=== PATIENT | male | born 1990 ===

== ENCOUNTER 2019-11-08 22:07 | Emergency (ER) | payer SELFPAY ==
[2019-11-09] MEDS ORDERED: ACETAMINOPHEN 325 MG TAB PO ONE (02:29)
[2019-11-09] MEDS ORDERED: IBUPROFEN 400 MG TAB PO ONE (02:29)
--- NOTE | 2019-11-09 02:30 | Emergency Department Report ---
ED General Adult HPI - General Chief complaint: Neuro Symptoms/Deficit Stated complaint: LEFT SIDE FACIAL PAIN/NUMBNESS PUI?: No Time Seen by Provider: 11/09/19 02:28 Source: patient, illustrator set, RN notes reviewed, old records reviewed Mode of arrival: Ambulatory Limitations: Language Barrier - History of Present Illness Initial comments: The patient was evaluated in the emergency department for symptoms described in the history of present illness. He/she was evaluated in the context of the global COVID-19 pandemic, which necessitated consideration that the patient might be at risk for infection with the virus that causes COVID-19. Institutional protocols and algorithms that pertain to the evaluation of patients at risk for COVID-19 are in a state of rapid change based on information released by regulatory bodies including the CDC and federal and state organizations. These policies and algorithms were followed during the patient's care in the emergency department. Please note that these policies, procedures and recommendations changed on a rapid basis. interpreter: [id number] The patient is a 29-year-old gentleman. He is not known to myself previously. He presents to the ER with a subjective sensation of the intermittent right and left side of his face twisting, inability to whistle, dental pain on the left maxillary posterior teeth, left posterior mandibular teeth, left-sided facial pain, sensitivity to cold, sensitivity to hot, subjective sensation that he cannot stick his tongue out to the middle, lightheadedness, without passing out, without DVT, pulmonary embolism risk factors. No headache, ocular pain, loss of vision, tinnitus, loss of hearing acuity, no chest pain, no abdominal pain, no shortness of breath, no ataxia, no focal extremity weakness and or numbness, no muscular pain. He subjectively feels like he cannot whistle. He has no loss of vision. -: days(s) Location: face, mouth Radiation: non-radiation Quality: constant Consistency: constant Improves with: none Worsens with: none - Related Data Previous Rx's Medication Instructions Recorded Last Taken Type Acetaminophen [Non-Aspirin Extra 500 mg PO Q6HR PRN #30 tablet 11/09/19 Unknown Rx Strength] Ibuprofen [Motrin] 600 mg PO Q8H PRN #30 tablet 11/09/19 Unknown Rx Mineral Oil/Petrolatum,White 1 applic OS PRN PRN #1 oint...g. 11/09/19 Unknown Rx [Refresh Lacri-Lube Ointment] Allergies Allergy/AdvReac Type Severity Reaction Status Date / Time No Known Allergies Allergy Unverified 10/06/17 12:05 ED Review of Systems ROS: Stated complaint: LEFT SIDE FACIAL PAIN/NUMBNESS Other details as noted in HPI Constitutional: denies: fever Eyes: denies: eye discharge, vision change ENT: dental pain. denies: as per HPI, ear pain, throat pain, hearing loss, epistaxis, congestion Respiratory: denies: cough Cardiovascular: denies: chest pain Gastrointestinal: denies: abdominal pain Genitourinary: denies: dysuria Musculoskeletal: denies: myalgia Neurological: denies: weakness, numbness, paresthesias, abnormal gait, vertigo Psychiatric: anxiety ED Past Medical Hx - Past Medical History Previous Medical History?: No - Surgical History Past Surgical History?: No - Social History Smoking Status: Never Smoker Substance Use Type: None - Medications Home Medications: Home Medications Medication Instructions Recorded Confirmed Last Taken Type Acetaminophen [Non-Aspirin Extra 500 mg PO Q6HR PRN #30 tablet 11/09/19 Unknown Rx Strength] Ibuprofen [Motrin] 600 mg PO Q8H PRN #30 tablet 11/09/19 Unknown Rx Mineral Oil/Petrolatum,White 1 applic OS PRN PRN #1 oint...g. 11/09/19 Unknown Rx [Refresh Lacri-Lube Ointment] ED Physical Exam - General Limitations: Language Barrier General appearance: alert, in no apparent distress - Head Head exam: Present: atraumatic, normocephalic - Eye Eye exam: Present: normal appearance, PERRL, EOMI, other (Visual acuity intact to finger counting and color perception at a close distance). Absent: nystagmus - ENT ENT exam: Present: normal exam, normal orophraynx, mucous membranes moist, TM's normal bilaterally, normal external ear exam, other (There is tenderness to percussion on tooth #15, 16, 17, 18. No stridor, no trismus, no malocclusion, no abscess, no gingival abscess noted) - Neck Neck exam: Present: normal inspection, full ROM, lymphadenopathy (Anterior cervical adenopathy is noted). Absent: tenderness, meningismus - Respiratory Respiratory exam: Present: normal lung sounds bilaterally. Absent: respiratory distress - Cardiovascular Cardiovascular Exam: Present: regular rate, normal rhythm, normal heart sounds. Absent: bradycardia, tachycardia, irregular rhythm, systolic murmur, diastolic murmur, rubs, gallop - GI/Abdominal GI/Abdominal exam: Present: soft, normal bowel sounds. Absent: distended, tenderness, guarding, rebound, rigid, pulsatile mass - Rectal Rectal exam: Present: deferred - Extremities Exam Extremities exam: Present: normal inspection, full ROM, other (2+ pulses noted in the bilateral upper and lower extremities. There is no palpable cord. negative Homans sign. Muscular compartments are soft. The pelvis is stable.). Absent: pedal edema, calf tenderness - Back Exam Back exam: Present: normal inspection, full ROM. Absent: tenderness, CVA tenderness (R), CVA tenderness (L), paraspinal tenderness, vertebral tenderness - Neurological Exam Neurological exam: Present: alert, normal gait, other (There is no facial droop. The tongue is midline. Extraocular movements are intact bilaterally. There is 5 out of 5 strength in bilateral upper and lower extremities. Sensation is intact to light touch bilateral upper and lower extremities. There is no past- pointing. There is no pronator drift. There is normal [id number]-ylxr. There is a normal gait.). Absent: motor sensory deficit - Psychiatric Psychiatric exam: Present: anxious - Skin Skin exam: Present: warm, dry, intact, normal color. Absent: rash ED Course Vital Signs 11/08/19 11/09/19 23:04 02:51 Temperature 98.6 F 98.6 F Pulse Rate 70 60 Respiratory 20 16 Rate Blood Pressure 121/79 Blood Pressure 122/75 [Right] O2 Sat by Pulse 96 97 Oximetry - Reevaluation(s) Reevaluation #1: 11/09/19 02:35 Differential diagnosis, including but not limited to: Patino's palsy, trigeminal neuralgia, dentalgia, general medical evaluation Assessment and plan: 29-year-old gentleman with a complaint of dental pain, lightheadedness, subjective inability to whistle, sensation that he cannot stick his tongue out midline. Objectively on my exam, he has a GCS of 15, with no obvious cranial nerve deficits, he is speaking in complete sentences without dysarthria or a aphasia using the organizational consultant, he is noted to be moving and manipulating his cell phone with remarkable dexterity, there is no forehead abnormality, this is very unlikely to be an ischemic stroke. I suspect trigeminal neuralgia versus early Patino's palsy. However, I do not detect any obvious facial asymmetry or abnormality. No pulmonary embolism or DVT risk factors, low risk by Wells criteria, PERC negative, not currently tachycardic, tachypneic or hypoxic. We will treat his symptoms, obtain EKG, obtain appropriate laboratory studies, and reassess. If no acute pathology is identified, he can be given pain medication, he will need to follow-up with an outpatient neurologist, primary care doctor, or dentist. Reevaluation #2: 11/09/19 03:45 Vital signs unremarkable, repeat examination unremarkable, patient resting comfortably in his stretcher, in no acute distress, appears to be quite preoccupied with his cellular phone. No facial asymmetry is appreciated. Patient can follow-up with an outpatient primary care doctor and/or neurologist. ED Medical Decision Making - Lab Data Result diagrams: 11/09/19 02:37 11/09/19 02:37 Vital Signs 11/08/19 23:04 Temperature 98.6 F Pulse Rate 70 Respiratory 20 Rate Blood Pressure 121/79 O2 Sat by Pulse 96 Oximetry Vital Signs 11/08/19 11/09/19 23:04 02:51 Temperature 98.6 F 98.6 F Pulse Rate 70 60 Respiratory 20 16 Rate Blood Pressure 121/79 Blood Pressure 122/75 [Right] O2 Sat by Pulse 96 97 Oximetry Lab Results 11/09/19 11/09/19 11/09/19 Range/Units 02:37 02:37 02:37 Hgb 16.0 H (11.8-15.2) gm/dl Hct 45.8 H (35.5-45.6) % Plt Count 254 (140-440) K/mm3 Sodium 141 (137-145) mmol/L Potassium 4.8 (3.6-5.0) mmol/L Chloride 103.8 (98-107) mmol/L Carbon Dioxide 23 (22-30) mmol/L Anion Gap 19 mmol/L BUN 18 (9-20) mg/dL Creatinine 0.9 (0.8-1.3) mg/dL Estimated GFR > 60 ml/min BUN/Creatinine Ratio 20 % Glucose 109 H (75-100) mg/dL Calcium 9.5 (8.4-10.2) mg/dL Magnesium 2.30 (1.7-2.3) mg/dL Total Creatine Kinase 90 (55-170) units/L TSH 2.690 (0.270-4.200) mlU/mL - EKG Data -: EKG Interpreted by Me EKG shows normal: sinus rhythm Rate: bradycardia - EKG Data When compared to previous EKG there are: previous EKG unavailable 11/09/19 02:48 Sinus rhythm, bradycardia, 51 bpm, there is a normal axis, QTC is within normal limits, there is borderline high left ventricular voltage, the EKG is not a STEMI. Critical care attestation.: If time is entered above; I have spent that time in minutes in the direct care of this critically ill patient, excluding procedure time. ED Disposition Clinical Impression: Dentalgia, Near syncope, Facial pain Disposition: TO HOME OR SELFCARE Is pt being admited?: No Does the pt Need Aspirin: No Condition: Stable Instructions: Patino Palsy (ED), Trigeminal Neuralgia (ED) Additional Instructions: Patient may take [id number]-[id number] Tylenol, alternating with rerq-zly-pzadict ibuprofen as needed for pain. Patient may alternate ice packs and warm compresses as needed for pain relief over affected areas on the face. Recommend that patient brush teeth at least twice daily, and floss at least once daily. Recommend that patient follow-up with a primary care doctor or neurologist within the next week. Recommend that patient follow-up with a dentist within the next week. Please return to the emergency room right away with new pain, worsened pain, migration of pain, rectal vomiting, change in mental status, confusion, inability to tolerate liquid feeds, new, worsened or different symptoms not present on the initial emergency room evaluation. It is possible that the patient may be having an early inflammation/irritation of the facial nerve, causing his symptoms. However, no objective findings were noted on the patient's physical exam today in the emergency room. Therefore, he should closely follow-up with 1 of the aforementioned outpatient physicians for further evaluation and management within the recommended timeframe. Patient should also purchase jrlx-ulv-cagvejf eyedrops/artificial tears, and use them liberally with his left eye as needed. Recommend that patient not drive or operate motor vehicles until cleared to do so by a primary care doctor Americo stuart Tylenol de venta getachew, alternando con ibuprofeno de venta getachew segn sea necesario para el dolor. El paciente puede alternar bolsas de hielo y compresas calientes segn sea necesario para aliviar el dolor en las reas afectadas de la sierra. Recomiende que el paciente se cepille los dientes al menos dos veces al da y use hilo dental al menos jairo vez al da. Recomiende que el paciente realice un seguimiento con un mdico de atencin primaria o un neurlogo dentro de la prxima semana. Recomiende que el paciente realice un seguimiento con un dentista christal la prxima semana. Regrese a la abdifatah de emergencias de inmediato con un nuevo dolor, empeoramiento del dolor, migracin del dolor, vmitos rectales, cambio en el estado mental, confusin, incapacidad para tolerar la alimentacin lquida, sntomas nuevos, empeorados o diferentes que no estn presentes en la evaluacin inicial de la abdifatah de emergencias. Es posible que el paciente tenga jairo inflamacin / irritacin temprana del nervio facial, causando fatoumata sntomas. Sin embargo, no se observaron hallazgos objetivos en el examen fsico del paciente de [facility] en la abdifatah de emergencias. Por lo tanto, debe realizar un seguimiento estrecho con pascual de los mdicos ambulatorios antes mencionados para jairo evaluacin y tratamiento adicionales dentro del plazo recomendado. El paciente tambin debe comprar gotas para los ojos / lgrimas artificiales de venta getachew y usarlas generosamente con el ronaldo rashid segn sea necesario. Recomendar que el paciente no conduzca ni opere vehculos motorizados hasta que un mdico de atencin primaria lo autorice Prescriptions: Ibuprofen [Motrin] 600 mg PO Q8H PRN #30 tablet PRN Reason: Pain Acetaminophen [Non-Aspirin Extra Strength] 500 mg PO Q6HR PRN #30 tablet PRN Reason: Pain , Severe (7-10) Mineral Oil/Petrolatum,White [Refresh Lacri-Lube Ointment] 1 applic OS PRN PRN #1 oint...g. PRN Reason: Dry Eye(S) Referrals: MARQUIS WEBB MD [Staff Physician] - 3-5 Days YAMILA SYED MD [Referring] - 3-5 Days [facility] [Outside] - 3-5 Days Print Language: AUSTRALIAN
[2019-11-09 02:53] VITALS: BP 122/75
[2019-11-09 03:11] LABS: Hematocrit 45.8 % (35.5-45.6)
[2019-11-09 03:24] LABS: BUN/Creatinine Ratio 20; Blood Urea Nitrogen 18 mg/dL (9-20); Calcium 9.5 mg/dL (8.4-10.2); Hemolysis Index 53
== END 2019-11-09 04:28 | disposition home or self-care (01) ==
LOC: ED 22:07
DX: R55 Syncope and collapse (principal); K08.89 Other specified disorders of teeth and supporting structures; R51 Headache
CPT/HCPCS: 36415; 80048; 82550; 83735; 84443; 85014; 85018; 85049; 93005